=== PATIENT | male | born 1990 | race Caucasian/White ===

== ENCOUNTER 2017-07-05 10:56 | Emergency (ER) | payer SELFPAY ==
[~2017-07-05] VITALS: Ht 175.3 cm; Wt 69.9 kg
[2017-07-05 11:16] VITALS: BP 136/97
[2017-07-05] MEDS ORDERED: KEFLEX500 MG PO (11:50)
[2017-07-05] MEDS ORDERED: ULTRAM50 MG PO (11:50)
== END 2017-07-05 12:15 | disposition home or self-care (01) ==
LOC: EME 10:56
PROC: 2W3EX1Z Immobilization of Right Hand using Splint (ICD-10-PCS; principal; 2017-07-05)
DX: S60.221A Contusion of right hand, initial encounter (principal); L03.113 Cellulitis of right upper limb; W22.09XA Striking against other stationary object, initial encounter; J45.909 Unspecified asthma, uncomplicated
CPT/HCPCS: 73130; 99281; 99283